=== PATIENT | female | born 1990 | race Caucasian/White ===

== ENCOUNTER 2016-05-28 10:51 | Emergency (ER) | payer OTHER ==
[2016-05-28 11:08] VITALS: TEMP 98.1
[2016-05-28] MEDS ORDERED: NS 1,000 ML IV ONE (12:08)
--- NOTE | 2016-05-28 12:12 | EDPHY ---
H & P Stated Complaint: cough, abdominal pain x 2 days HPI/ROS: CHIEF COMPLAINT: Multiple complaints HISTORY OF PRESENT ILLNESS: Patient complains of upper respiratory infections, body aches chills, cough, runny nose congestion, abdominal pain, vaginal itching and discomfort. The upper respiratory and flu-like symptoms started on Saturday. They have been constant duration. [id number] severity. Worse when lying down. Improved at rest. No improvement with [id number] medications. He abdominal pain is lower in the pelvis. She feels this is a cramping type pain, and possibly premenstrual. No severe pain. No sudden onset of pain. This been present for several days. She also has some vaginal discomfort and itching that she feels is related to a yeast infection. No urinary complaints. No diaphoresis. Some subjective fever. Some malaise. No neck pain or stiffness. No headache. No other associated complaints or modifying factors. Not sexually active since last July REVIEW OF SYSTEMS: Ten systems reviewed and are negative unless otherwise noted in the HPI PERTINENT MEDICAL HISTORY: None EXAMINATION General Appearance: Alert, no distress Head: normocephalic, atraumatic Eyes: Pupils equal and round, no conjunctival pallor or injection ENT, Mouth: Mucous membranes moist. No erythema or edema. Uvula is midline. Neck: Normal inspection, supple, non-tender. No nuchal rigidity. No meningismus. Respiratory: Lungs are clear to auscultation. No wheezing, rhonchi or crackles. Cardiovascular: Regular rate and rhythm. No murmur. Pulses intact distally. Gastrointestinal: Abdomen is soft and nontender. No tympany. No rigidity. No rebound. No guarding. No CVA tenderness. No pelvic tenderness. : Female RN present. Normal external genitalia. Scant discharge in the adnexa. No cervical motion tenderness. Mild erythema at the cervical os. No abnormal presentation of the uterus. Cervical swabs obtained. Back: non-tender, no bony abnormalities Neurological: A&O, nonfocal, normal gait. Strength is symmetric. Skin: Warm and dry, no rash. No petechiae or purpura. Extremities: Nontender, no pedal edema Psychiatric: Mood and affect normal DIFFERENTIAL DIAGNOSES: Including but not limited to influenza, mono, viral illness, pneumonia, upper respiratory infection, pelvic cramps, premenstrual cramps, ovarian cysts, pelvic inflammatory disease, sexually transmitted infection MDM: 12:10 p.m. Flu-like symptoms, upper respiratory symptoms, abdominal pain and cramping, and vaginitis complaints. Patient is requesting pelvic examination. Laboratory studies have been ordered. She is in no acute distress. No evidence of sepsis. Vital signs stable 12:50 p.m. Pelvic exam has been performed with female RN (Essie) at bedside. No significant abnormalities noted. Pelvic/cervical swabs obtained. 1:30 p.m. Laboratory studies of thus far normal. Chest x-ray is pending. She is in no acute distress. 2:20 p.m. All laboratory studies are negative. No signs of infection or bleeding. Negative mono. Negative flu. Pelvic swabs that are pending are chlamydia and gonorrhea. She has no sexual activity since last July, thus the chance that this is incredibly low. I will treat her for vaginitis with Flagyl and Diflucan as she feels that she has a yeast infection. She likely has viral illness otherwise. Symptomatic medications including ibuprofen or Aleve. Discharged home with follow up with established gut sorter. Patient is comfortable with this plan and discharged home stable condition SUPERVISION: This patient was independently evaluated without direct examination by the attending physician. Case was discussed with attending physician. Source: Patient Exam Limitations: No limitations - Personal History LMP (Females 10-55): Over 28 Days Ago Current Tetanus Diphtheria and Acellular Pertussis (TDAP): No - Medical/Surgical History Hx Asthma: Yes Hx Chronic Respiratory Disease: No Hx Diabetes: No Hx Cardiac Disease: No Hx Renal Disease: No Hx Cirrhosis: No Hx Alcoholism: No Hx HIV/AIDS: No Hx Splenectomy or Spleen Trauma: No Other PMH: subdural hematoma with extraction at age 7. benign breast tumor. - Social History Smoking Status: Current some day smoker Constitutional: Initial Vital Signs Temperature (C) 98.1 F 05/28/16 11:05 Heart Rate 90 05/28/16 11:05 Respiratory Rate 16 05/28/16 11:05 Blood Pressure 117/89 H 05/28/16 11:05 O2 Sat (%) 96 05/28/16 11:05 O2 Delivery Mode Room Air Allergies/Adverse Reactions: No Known Allergies Allergy (Verified 07/10/15 12:36) Home Medications: Medication Instructions Recorded BENADRYL 08/07/15 Acetaminophen/Codeine 300/30Mg 1 each PO Q6 PRN #15 tab 05/28/16 [Tylenol #3 (*)] Fluconazole 150 mg PO DAILY #2 tablet 05/28/16 metroNIDAZOLE [Flagyl 500 mg (*)] 500 mg PO BID #20 tab 05/28/16 Medical Decision Making - Diagnostics Imaging Results: Imaging Impressions Chest X-Ray 05/28/16 12:11 Impression: No acute findings in the chest. - Data Points Laboratory Results: Laboratory Results 05/28/16 11:35 05/28/16 11:35 05/28/16 05/28/16 05/28/16 Unknown 13:02 12:20 WBC RBC Hgb Hct MCV MCH MCHC RDW Plt Count MPV Neut % (Auto) Lymph % (Auto) Harmon % (Auto) Eos % (Auto) Baso % (Auto) Nucleat RBC Rel Count Absolute Neuts (auto) Absolute Lymphs (auto) Absolute Monos (auto) Absolute Eos (auto) Absolute Basos (auto) Absolute Nucleated RBC Immature Gran % Immature Gran # Sodium Potassium Chloride Carbon Dioxide Anion Gap BUN Creatinine Estimated GFR Glucose Calcium Total Bilirubin Conjugated Bilirubin Unconjugated Bilirubin AST ALT Alkaline Phosphatase Total Protein Albumin Lipase Beta HCG, Qual Urine Color Urine Appearance Urine pH Ur Specific [place] Urine Protein Urine Ketones Urine Blood Urine Nitrate Urine Bilirubin Urine Urobilinogen Ur Leukocyte Esterase Urine RBC Urine WBC Ur Epithelial Cells Urine Mucus Ur Culture Indicated? Urine Glucose Trichomonas (Wet Prep) NO WBC Reyna species DNA C.trachomatis RNA (TMA) Gardnerella DNA Probe Monoscreen Influenza Typ A,B (DFA) NEGATIVE FOR FLU (NEGATIVE) N.gonorrhoeae RNA (TMA) Group A Strep Screen Group A Strep DNA Pending Trichomonas DNA Probe 05/28/16 05/28/16 05/28/16 12:20 12:20 11:35 WBC RBC Hgb Hct MCV MCH MCHC RDW Plt Count MPV Neut % (Auto) Lymph % (Auto) Harmon % (Auto) Eos % (Auto) Baso % (Auto) Nucleat RBC Rel Count Absolute Neuts (auto) Absolute Lymphs (auto) Absolute Monos (auto) Absolute Eos (auto) Absolute Basos (auto) Absolute Nucleated RBC Immature Gran % Immature Gran # Sodium Potassium Chloride Carbon Dioxide Anion Gap BUN Creatinine Estimated GFR Glucose Calcium Total Bilirubin Conjugated Bilirubin Unconjugated Bilirubin AST ALT Alkaline Phosphatase Total Protein Albumin Lipase Beta HCG, Qual Urine Color YELLOW Urine Appearance CLEAR Urine pH 5.0 (5.0-7.5) Ur Specific [place] 1.026 (1.002-1.030) Urine Protein 1+ H (NEGATIVE) Urine Ketones TRACE H (NEGATIVE) Urine Blood NEGATIVE (NEGATIVE) Urine Nitrate NEGATIVE (NEGATIVE) Urine Bilirubin NEGATIVE (NEGATIVE) Urine Urobilinogen NEGATIVE EU EU (0.2-1.0) Ur Leukocyte Esterase NEGATIVE (NEGATIVE) Urine RBC 1-3 /hpf /hpf (0-3) Urine WBC NONE SEEN /hpf /hpf (0-3) Ur Epithelial Cells TRACE /lpf /lpf (NONE-1+) Urine Mucus 1+ /lpf /lpf (NONE-1+) Ur Culture Indicated? NOT INDICATED (NI) Urine Glucose NEGATIVE (NEGATIVE) Trichomonas (Wet Prep) TNP Reyna species DNA Pending C.trachomatis RNA (TMA) Gardnerella DNA Probe Pending Monoscreen Influenza Typ A,B (DFA) N.gonorrhoeae RNA (TMA) Group A Strep Screen NEGATIVE (NEGATIVE) Group A Strep DNA Trichomonas DNA Probe Pending 05/28/16 05/28/16 05/28/16 11:35 11:35 11:35 WBC RBC Hgb Hct MCV MCH MCHC RDW Plt Count MPV Neut % (Auto) Lymph % (Auto) Harmon % (Auto) Eos % (Auto) Baso % (Auto) Nucleat RBC Rel Count Absolute Neuts (auto) Absolute Lymphs (auto) Absolute Monos (auto) Absolute Eos (auto) Absolute Basos (auto) Absolute Nucleated RBC Immature Gran % Immature Gran # Sodium 141 mEq/L mEq/L (134-144) Potassium 4.3 mEq/L mEq/L (3.5-5.2) Chloride 110 mEq/L mEq/L (97-110) Carbon Dioxide 22 mEq/l mEq/l (22-31) Anion Gap 9 mEq/L mEq/L (8-16) BUN 9 mg/dL mg/dL (7-23) Creatinine 0.7 mg/dL mg/dL (0.6-1.0) Estimated GFR > 60 Glucose 73 mg/dL mg/dL (70-100) Calcium 9.7 mg/dL mg/dL (8.5-10.4) Total Bilirubin 1.9 mg/dL H mg/dL (0.1-1.4) Conjugated Bilirubin 0.4 mg/dL mg/dL (0.0-0.5) Unconjugated Bilirubin 1.5 mg/dL H mg/dL (0.0-1.1) AST 22 IU/L IU/L (14-46) ALT 30 IU/L IU/L (9-52) Alkaline Phosphatase 84 IU/L IU/L (38-126) Total Protein 7.2 g/dL g/dL (6.3-8.2) Albumin 4.4 g/dL g/dL (3.5-5.0) Lipase 50.0 IU/L IU/L (23-300) Beta HCG, Qual NEGATIVE Urine Color Urine Appearance Urine pH Ur Specific [place] Urine Protein Urine Ketones Urine Blood Urine Nitrate Urine Bilirubin Urine Urobilinogen Ur Leukocyte Esterase Urine RBC Urine WBC Ur Epithelial Cells Urine Mucus Ur Culture Indicated? Urine Glucose Trichomonas (Wet Prep) Reyna species DNA C.trachomatis RNA (TMA) Pending Gardnerella DNA Probe Monoscreen NEGATIVE (NEGATIVE) Influenza Typ A,B (DFA) N.gonorrhoeae RNA (TMA) Pending Group A Strep Screen Group A Strep DNA Trichomonas DNA Probe 05/28/16 11:35 WBC 7.34 10^3/uL 10^3/uL (3.80-9.50) RBC 4.60 10^6/uL 10^6/uL (4.18-5.33) Hgb 15.5 g/dL g/dL (12.6-16.3) Hct 44.4 % % (38.0-47.0) MCV 96.5 fL fL (81.5-99.8) MCH 33.7 pg pg (27.9-34.1) MCHC 34.9 g/dL g/dL (32.4-36.7) RDW 12.2 % % (11.5-15.2) Plt Count 289 10^3/uL 10^3/uL (150-400) MPV 9.9 fL fL (8.7-11.7) Neut % (Auto) 60.9 % % (39.3-74.2) Lymph % (Auto) 29.0 % % (15.0-45.0) Harmon % (Auto) 8.6 % % (4.5-13.0) Eos % (Auto) 0.8 % % (0.6-7.6) Baso % (Auto) 0.4 % % (0.3-1.7) Nucleat RBC Rel Count 0.0 % % (0.0-0.2) Absolute Neuts (auto) 4.47 10^3/uL 10^3/uL (1.70-6.50) Absolute Lymphs (auto) 2.13 10^3/uL 10^3/uL (1.00-3.00) Absolute Monos (auto) 0.63 10^3/uL 10^3/uL (0.30-0.80) Absolute Eos (auto) 0.06 10^3/uL 10^3/uL (0.03-0.40) Absolute Basos (auto) 0.03 10^3/uL 10^3/uL (0.02-0.10) Absolute Nucleated RBC 0.00 10^3/uL 10^3/uL (0-0.01) Immature Gran % 0.3 % % (0.0-1.1) Immature Gran # 0.02 10^3/uL 10^3/uL (0.00-0.10) Sodium Potassium Chloride Carbon Dioxide Anion Gap BUN Creatinine Estimated GFR Glucose Calcium Total Bilirubin Conjugated Bilirubin Unconjugated Bilirubin AST ALT Alkaline Phosphatase Total Protein Albumin Lipase Beta HCG, Qual Urine Color Urine Appearance Urine pH Ur Specific [place] Urine Protein Urine Ketones Urine Blood Urine Nitrate Urine Bilirubin Urine Urobilinogen Ur Leukocyte Esterase Urine RBC Urine WBC Ur Epithelial Cells Urine Mucus Ur Culture Indicated? Urine Glucose Trichomonas (Wet Prep) Reyna species DNA C.trachomatis RNA (TMA) Gardnerella DNA Probe Monoscreen Influenza Typ A,B (DFA) N.gonorrhoeae RNA (TMA) Group A Strep Screen Group A Strep DNA Trichomonas DNA Probe Medications Given: Discontinued Medications Sodium Chloride (Ns) 1,000 mls @ 0 mls/hr IV ONCE ONE PRN Reason: Wide Open Stop: 05/28/16 12:09 Last Admin: 05/28/16 12:46 Dose: 1,000 mls Departure - Departure Disposition: Home, Routine, Self-Care Clinical Impression: URI (upper respiratory infection) Qualifiers: URI type: unspecified viral URI Qualified Code(s): J06.9 - Acute upper respiratory infection, unspecified Abdominal pain Qualifiers: Abdominal location: generalized Qualified Code(s): R10.84 - Generalized abdominal pain Vaginitis Qualifiers: Chronicity: acute Qualified Code(s): N76.0 - Acute vaginitis Condition: Good Instructions: Bacterial Vaginosis (ED), Upper Respiratory Infection (ED), Vaginitis (ED) Additional Instructions: Medications as discussed. Follow up with primary care physician and your gut sorter. Return to ER for worsening abdominal pain, nausea, vomiting or fever Referrals: NONE *PRIMARY CARE P,. [Primary Care Provider] - As per Instructions Deanna Gaona DO [Doctor of Osteopathy] - As per Instructions Prescriptions: Acetaminophen/Codeine 300/30Mg [Tylenol #3 (*)] 1 each PO Q6 PRN #15 tab PRN Reason: Pain, Mild Fluconazole 150 mg PO DAILY #2 tablet metroNIDAZOLE [Flagyl 500 mg (*)] 500 mg PO BID #20 tab
[2016-05-28 12:23] LABS: % IMMATURE GRANULYOCYTES 0.3 % (0.0-1.1); ABSOLUTE IMMATURE GRANULOCYTES 0.02 10^3/uL (0.00-0.10); ADD DIFF? NO; ADD MORPH? NO; ADD SCAN? NO; ATYPICAL LYMPHOCYTE FLAG 10 (0-99); COLOR YELLOW; FRAGMENT RBC FLAG 0 (0-99); HEMATOCRIT 44.4 % (38.0-47.0); HEMOGLOBIN 15.5 g/dL (12.6-16.3); LEFT SHIFT FLG 0 (0-99); LEUKOCYTE ESTERASE,URINE NEGATIVE (NEGATIVE); LIPEMIA HEMOLYSIS FLAG 90 (0-99); MEAN CELL HEMOGLOBIN 33.7 pg (27.9-34.1); MEAN CELL HEMOGLOBIN CONCENTR. 34.9 g/dL (32.4-36.7); MEAN CELL VOLUME 96.5 fL (81.5-99.8); MEAN PLATELET VOLUME 9.9 fL (8.7-11.7); NITRITE,URINE NEGATIVE (NEGATIVE); PLATELET CLUMPS FLAG 10 (0-99); PLATELET COUNT 289 10^3/uL (150-400); RED CELL DISTRIBUTION WIDTH 12.2 % (11.5-15.2)
[2016-05-28 12:26] LABS: MONO TEST NEGATIVE (NEGATIVE)
[2016-05-28 12:27] LABS: BHCG-QUALITATIVE NEGATIVE
[2016-05-28 12:29] LABS: ALANINE AMINOTRANSFERASE 30 IU/L (9-52); ALBUMIN 4.4 g/dL (3.5-5.0); ALKALINE PHOSPHATASE 84 IU/L (38-126); ANION GAP 9 mEq/L (8-16); ASPARTATE AMINOTRANSFERASE 22 IU/L (14-46); BILIRUBIN,TOTAL 1.9 mg/dL (0.1-1.4); BILIRUBIN-CONJUGATED 0.4 mg/dL (0.0-0.5); BILIRUBIN-UNCONJUGATED 1.5 mg/dL (0.0-1.1); CALCIUM 9.7 mg/dL (8.5-10.4); CARBON DIOXIDE 22 mEq/l (22-31); CHLORIDE 110 mEq/L (97-110); CREATININE 0.7 mg/dL (0.6-1.0); GLOMERULAR FILTRATION RATE > 60; GLUCOSE 73 mg/dL (70-100); POTASSIUM 4.3 mEq/L (3.5-5.2); SODIUM 141 mEq/L (134-144); TOTAL PROTEIN 7.2 g/dL (6.3-8.2)
[2016-05-28 12:31] LABS: MUCUS 1+ /lpf (NONE-1+)
[2016-05-28 12:34] LABS: WBC,URINE NONE SEEN /hpf (0-3)
[2016-05-28 15:08] VITALS: BP 111/91; PULSE 91; RESP 18; O2SAT 95
[2016-05-29 13:14] LABS: CHLAMYDIA AMPLIFICATION GENPRB NEGATIVE (NEGATIVE)
== END 2016-05-28 15:08 | disposition home or self-care (01) ==
DX: J06.9 Acute upper respiratory infection, unspecified (principal); N76.0 Acute vaginitis; B96.89 Other specified bacterial agents as the cause of diseases classified elsewhere; R10.84 Generalized abdominal pain; J45.909 Unspecified asthma, uncomplicated; F17.200 Nicotine dependence, unspecified, uncomplicated